=== PATIENT | male | born 1955 | race African-American/Black ===

== ENCOUNTER 2018-02-08 21:20 | Emergency (ER) | payer OTHER ==
[~2018-02-08] VITALS: Ht 175.3 cm; Wt 76.9 kg
[2018-02-08 21:23] VITALS: BP 139/84
[2018-02-08] MEDS ORDERED: VIT D (21:32)
[2018-02-08] MEDS ORDERED: PROPARACAINE OPHTH 0.5%, 15ML ONE (21:58)
== END 2018-02-08 23:04 | disposition home or self-care (01) ==
LOC: ED 23:00
DX: H10.023 Other mucopurulent conjunctivitis, bilateral (principal)
CPT/HCPCS: 99283